=== PATIENT | female | born 1960 | race Caucasian/White ===

== ENCOUNTER → 2020-03-23 | Outpatient (CLI) | payer SELFPAY | END | disposition home or self-care (01) | LOC: LABWHC1 09:53 | PROVIDERS: ATTEND Family Medicine | DX: Z20.828 Contact with and (suspected) exposure to other viral communicable diseases (principal) | CPT/HCPCS: U0003; C9803 ==

== ENCOUNTER → 2020-07-12 | Outpatient (CLI) | payer OTHER | END | disposition home or self-care (01) | LOC: LABWHC1 16:39 | PROVIDERS: ATTEND Nurse Practitioner Family | DX: Z20.828 Contact with and (suspected) exposure to other viral communicable diseases (principal) | CPT/HCPCS: U0003; C9803 ==

== ENCOUNTER 2024-03-25 11:30 | Emergency (ER) | payer OTHER ==
[2024-03-25] MEDS ORDERED: MECLIZINE 12.5 MG TAB ONE (12:20)
[2024-03-25] MEDS ORDERED: SODIUM CHLORIDE 0.9% 500 ML BAG ONE (12:20)
[2024-03-25] MEDS ORDERED: traMADol 50 MG TAB ONE (14:57)
== END 2024-03-25 16:21 | disposition home or self-care (01) ==
LOC: EC 11:30
DX: R55 Syncope and collapse (principal)
CPT/HCPCS: 93005; 96360; 96361; 99284